=== PATIENT | female | born 1980 | race Caucasian/White ===

== ENCOUNTER 2020-03-27 17:31 | Inpatient (IN) | payer MEDICAID, SELFPAY ==
[2020-03-27 17:33] VITALS: BP 113/71; PULSE 113; RESP 18; TEMP 36.3; O2SAT 97; BMI 19.3
--- NOTE | 2020-03-27 17:35 | ED.RN ---
KINSEY SUBRAMANIAN- [phone]. RECENT FRIEND THAT SHE CAN CONTACT
--- NOTE | 2020-03-27 18:18 | ED.RN ---
PT SIGNED CONTRACT FOR RAMP PROGRAM. PT CHANGED INTO GOWN, GIVEN COKE, SNACK, YOGURT ECT. PT AWARE LABS NEED DRAWN
--- NOTE | 2020-03-27 18:19 | ED.DCSUM_ITS ---
History of Present Illness Chief Complaint: Substance Abuse Informant: Patient Narrative: Patient is a 39-year-old female with history of IV drug use and hypothyroid presenting for detox. Patient states she regularly uses crack cocaine and heroin IV. She last used earlier today. She mainly injects in her arms. She states she is about a gram a day. She states is been really trying to get clean all year but keeps relapsing. She has been at [facility] for detox in the past. Last time was about a month ago. She does admit to tobacco use. She denies any other drug use or any alcohol use. She notes that she has had increased redness and swelling around her track navarrete sites and is worried that she might have an infection. She was put on antibiotics by her primary care doctor last month but did not complete them. She does not know which antibiotics they were. She denies any fever or chills. She notes she has been off of her Synthroid as well. Patient states she is currently homeless. Past Medical History - Allergies and Home Meds Allergies/Adverse Reactions: Allergies No Known Allergies Allergy (Verified 03/27/20 17:35) Past Medical History: - - Hypothyroid Surgical History: noncontributory Lives: Homeless Smoking Status: Current every day smoker Alcohol: None Drugs: Cocaine, Heroin - Family History Maternal Family History: Reports: No pertinent history Paternal Family History: Reports: No pertinent history Review of Systems General: Denies: Chills, Fever, Malaise, Sweats Eyes: Denies: Visual changes - bilaterally, Diplopia ENT: Denies: Rhinorrhea, Sore throat Cardiovascular: Denies: Chest pain, Palpitations Respiratory: Denies: Dyspnea, Cough, Dyspnea on exertion Gastrointestinal: Denies: Abdominal pain, Nausea, Vomiting, Diarrhea, Melena, Hematochezia Genitourinary: Denies: Dysuria, Hematuria, Frequency Musculoskeletal: Denies: Back pain, Extremity Pain Skin: Reports: Wounds - Extremities from injecting drugs. Denies: Rash, Abscess Neurological: Denies: Headache, Weakness, Numbness Physical Exam Vital Signs/Narrative: Vital Signs Temp Pulse Resp BP Pulse Ox 03/27/20 17:33 97.4 F L 113 H 18 113/71 97 Inital Vital Signs reviewed: Yes General: Well nourished, Well developed, No Acute Distress Head: Normocephalic, Atraumatic Eyes: Perrl, EOMI ENT: Moist mucous membranes, No rhinorrhea Neck: Supple, Nontender Cardiovascular: Regular rate, Regular rhythm, No murmurs Respiratory: No distress, CTA bilaterally, Chest nontender Abdomen: Soft, Nontender, Nondistended, Normal bowel sounds Back: Nontender, Normal Inspection Extremities: Nontender, - - Mild erythema and edema of the right middle finger. No Kanaval signs Skin: Normal color, - - Multiple scattered track navarrete, multiple small wounds on all extremities consistent with skin picking and injecting. Some have scattered areas of erythema but no signs of abscess. No lymphangitic streaking is noted on the extremities. Neurological: Alert, Oriented x3, Cranial nerves II-XII grossly intact, Normal Strength, Normal Sensation Psychological: Normal affect, Normal Mood Diagnostic/Tx/Re-eval - Medical Decision Making Patient evaluated for request of detox from opioids and cocaine. Patient peers nontoxic in no acute distress. She does not appear clinically intoxicated at this time. She does have possible early cellulitic changes versus inflammatory changes from her IV drug use. She is given first dose of doxycycline emergency room. She does not have any obvious abscess or require any incision and drainage at this time. Patient is otherwise well-appearing. She stable for general medical floor at time of disposition. ED Disposition - Plan for ED Patient: Disposition: Acute Care [facility] Diagnosis: Opioid dependence, Polysubstance abuse, Cellulitis of right hand
--- NOTE | 2020-03-27 18:21 | PCM.HP.STD ---
History of Present Illness Date of Admission: 03/27/20 Chief Complaint: acute opioid withdrawal The patient is a 39 year old F with a past medical history of opiate dependence and crack cocaine abuse as well as hypothyroidism. She was admitted through the ED on 03/27/2020 for acute opiate withdrawal. Patient's last use was on day of admission. She admitted to some chills but denied fever, cough, chest pain, shortness of breath, palpitations abdominal cramping, dizziness, diarrhea vomiting. Review of signs otherwise negative. She says she has been through detox before but was unsuccessful. She says she has been going to detox every month this year up in [place] and says she was able to stay clean for a bit but subsequently relapsed because in the ED, vitals show temperature of 97.4 Fahrenheit with blood pressure of 113/71. Pulse rate was 113 and respiratory rate was 18. She was saturating 97% on room air. She has been admitted to be managed for acute opioid withdrawal. [] Past Medical History Allergies No Known Allergies Allergy (Verified 03/27/20 17:35) Surgical History: no surgical history Psychiatric History: No pertinent psych hx EXECUTIVE CREATIVE DIRECTOR History: No pertinent EXECUTIVE CREATIVE DIRECTOR history Lives: Homeless Smoking Status: Current every day smoker Tobacco Use: Cigarettes Alcohol: None Drugs: Cocaine, Heroin - *Family History Maternal History Items: - - hypothyroidism Paternal History Items: No pertinent history Review of Systems Constitutional: Denies: Chills, Fever, Malaise, Weight Change HEENT: Denies: Head Aches, Sinus Congestion, Sinus Drainage Cardiovascular: Denies: Chest Pain, Palpitations Respiratory: Denies: Cough, Shortness of Breath, Shortness of breath at rest, Shortness of breath upon exertion, Sputum production Gastrointestinal: Denies: Abdominal Pain, Nausea, Vomiting Genitourinary: Denies: Dysuria Musculoskeletal: Denies: Joint Pain, Joint Tenderness Skin: Reports: - - superficial irritations from IV drug use. Neurological: Denies: Numbness, Tingling, Focal weakness Psychiatric: Denies: Anxiety, Depression, Homicidal Ideations, Suicidal Ideations Hematologic/ Lymphatic: Denies: Easy Bruising, Easy Bleeding VTE Information - Inpt Only VTE Present on Admission: No VTE Pharm Prophylaxis ordered?: No Reason prophylaxis not ordered:: Treatment Not Indicated - Physical Exam Vitals/I&O's: Vital Signs Temp Pulse Resp BP Pulse Ox 97.4 F L 113 H 18 113/71 97 03/27/20 17:33 03/27/20 17:33 03/27/20 17:33 03/27/20 17:33 03/27/20 17:33 Oxygen Delivery Method Room Air Weight: 102 lb 1.184 oz Body Mass Index (BMI) 19.3 General: Alert, Oriented x3, Cooperative HEENT: Atraumatic, PERRLA, EOMI, Normocephalic Oral: Dry Mucosa Neck: Supple, No JVD, Negative Carotid Bruits Lungs: Clear to auscultation, Normal air movement Cardiovascular: Regular rate, Normal S1, Normal S2, No murmurs Abdomen: Bowel Sounds Present, Soft, Non Tender Extremities: No clubbing, No cyanosis, No edema, Capillary Refill Less than 3 Seconds Skin: No rashes, No breakdown, - - superficial ulcerations with erythema and healing scabs all over UEs and lower extremities, as well as her face. Musculoskeletal: No Tenderness to Palpation of Joints or Extremities Lymphatic: No Cervical, Supraclavicular, or Inguinal Adenopathy Neurological: Cranial nerves II-XII grossly intact, Neuro grossly intact, Motor Exam 5/5 strength throughout Psych/Mental Status: Normal Affect, Appropriate, Alert and oriented to time, place, person, mood and affect Assessment/Plan 39-year-old female admitted for acute opioid withdrawal. #Acute opioid withdrawal Admit to [facility]. CBC and CMP as well as urine tox pending. Started on opioid withdrawal protocol with buprenorphine. Patient told me that she preferred tramadol withdrawal protocol but I explained to her that our recommended protocol was with buprenorphine. Monitor CINA score. #History of crack cocaine abuse: Counseled to quit. #cellulitis fo the UEs and LEs: has ulcerations with mild erythema over her upper extremities and lower extremities. Will start on p.o. doxycycline. #History of hepatitis C: Treatment na?ve. Counseled she needs to stay clean for about 6 months qualify for treatment. # hypothyroidism: Patient says she has a history of hypothyroidism and is on Synthroid at home. This is not on her med rec for her. TSH is pending. #DVT prophylaxis: Low risk. Encouraged to ambulate. Disposition: Patient is currently homeless and says she has a bed in a rehab facility in [place] after the acute detox process. She does not remember the name of the treatment facility. When I suggested it could be [facility], she said was possibly at that facility but she could not remember. Case management to help facilitate eventual discharge. Inpatient E&M: [id number] Init Hosp L3
--- NOTE | 2020-03-27 18:26 | NURSING ---
DR HEBERT CARDENAS
--- NOTE | 2020-03-27 18:29 | CM.ED ---
SOCIAL WORK Reason for Consult: Substance Abuse Patient presents to [facility] ER wanting detox from heroin and cocaine. Patient states last use was earlier today. Patient states resides in [facility]. Discussed [facility] program and informed quarry worker from [facility] will complete assessment with patient during inpatient stay. Patient verbalized understanding. Patient has signed RAMP agreement with nursing and denies any questions or concerns. Plan: Admit to CURLY Leonardo, PIN INSERTER REGULATOR, SOFTWARE REQUIREMENTS ENGINEER
[2020-03-27 18:30] VITALS: BP 113/71; PULSE 113; RESP 18; TEMP 36.3
--- NOTE | 2020-03-27 18:32 | NURSING ---
MED SURG DR AMBROSIO ACUTE OPIOID WITHDRAWAL
[2020-03-27 18:38] VITALS: BMI 19.3
[2020-03-27] MEDS: Doxycycline 100 MG CAPSULE PO ×2 (18:47→22:10)
--- NOTE | 2020-03-27 18:55 | CM.ED ---
SOCIAL WORK Call to [facility] Treatment Navigator-Michelle to update on patient's admission to [facility]. Per Michelle loft worker head will be in tomorrow to complete assessment. Cari Leonardo, SUPERVISOR TOY ASSEMBLY, SUPERVISOR DOG LICENSE OFFICER
[2020-03-27 19:04] VITALS: BMI 19.3
[2020-03-27 19:04] LABS: Absolute Lymphocyte Count 1.83 X10^3/uL (0.83-4.51); Absolute Neutrophil Count 9.7 X10^3/uL (2.0-7.7); Basophil# 0.05 X10^3/uL; Basophil% 0.4 % (0-1); Eosinophil# 0.34 X10^3/uL; Eosinophils% 2.7 % (0-5); Hematocrit 37.4 % (37-47); Lymphocyte # 1.83 X10^3/ul (4.0); Lymphocyte % 14.8 % (19-41); Mean Corp Hgb Conc 32.1 g/dL (32-36); Mean Corpuscular Hgb 28.5 pg (27.0-32.0); Mean Corpuscular Volume 88.8 fL (81-99); Mean Platelet Vol. 9.3 fl (6.2-12.0); Monocyte# 0.47 X10^3/uL; Monocyte% 3.8 % (0-10); NRBC Flagged by Analyzer 0 % (0-5); Neutrophil # 9.65 X10^3/uL (2.7-7.7); Neutrophil % 77.8 % (47-70); Platelet Count 377 K/mm3 (150-450); RBC Distribution Width CV 13.8 % (11.6-14.6); RBC Distribution Width SD 44.8 fl (35.1-43.9); Red Blood Count 4.21 M/mm3 (4.2-5.4); White Blood Count 12.4 K/mm3 (4.4-11.0)
[2020-03-27 19:06] LABS: Internal QC Validated? YES +Cl - CLEAR BKGD; Pregnancy, Urine Negative Negative
[2020-03-27 19:16] LABS: Amphetamine Urine VISTA POSITIVE (<1000 ng/mL); Barbiturate Urine VISTA NEGATIVE (< 200 ng/mL); Benzodiazepine Urine VISTA NEGATIVE (< 200 ng/mL); Cocaine Urine VISTA POSITIVE (< 300 ng/mL); Ecstacy Urine VISTA NEGATIVE (< 500 ng/mL); Methadone Urine VISTA NEGATIVE (< 300 ng/mL); PCP Urine VISTA NEGATIVE (< 25 ng/mL); THC Urine VISTA NEGATIVE (< 50 ng/mL); Vista UDS pH Range 6
[2020-03-27 19:19] VITALS: BP 107/66; PULSE 102; RESP 16; TEMP 36.8; O2SAT 98
[2020-03-27 19:27] LABS: ALB/GLOB Ratio 0.6 RATIO (0.9-2.4); AST(SGOT) 15 U/L (15-37); Alanine Aminotransfer ALT/SGPT 19 U/L (13-56); Albumin, Serum 3.2 g/dL (3.2-5.0); Alkaline Phosphatase 126 U/L (45-117); Anion Gap 4 (5-15); BUN 8 mg/dL (7-18); BUN/Creat Ratio 10.4 RATIO (10-20); Calcium,Total 8.9 mg/dL (8.5-10.1); Chloride 101 mmol/L (98-107); Creatinine, Serum 0.77 mg/dL (0.55-1.02); EST Glomerular Filtration Rate 89 mL/min (>60); Est Glom Filt Rate - Afr Amer 107 mL/min (>60); Estimated Creatinine Clearance 70.99 ml/min; Globulin 5.6 g/dL (2.2-4.2); Glucose 119 mg/dL (74-106); Potassium 3.4 mmol/L (3.5-5.1); Protein, Total 8.8 g/dL (6.4-8.2); Sodium Level 136 mmol/L (136-145); Thyroid Stim Hormone (TSH) 0.62 uIU/mL (0.358-3.74)
[2020-03-27] MEDS: hydrOXYzine PAM 25 MG Capsule 50 MG PO (23:06)
[2020-03-27] MEDS: Buprenorphine HCl 2 MG TAB.SUBL SL (23:06)
[2020-03-28 01:45] VITALS: BP 111/66; PULSE 100; RESP 18; TEMP 37.8; O2SAT 98
[2020-03-28 05:37] VITALS: BP 98/66; PULSE 98; RESP 16; TEMP 37.2; O2SAT 98
[2020-03-28] MEDS: Buprenorphine HCl 2 MG TAB.SUBL SL ×3 (05:40→22:30)
[2020-03-28 05:50] LABS: Absolute Lymphocyte Count 2.99 X10^3/uL (0.83-4.51); Absolute Neutrophil Count 8.5 X10^3/uL (2.0-7.7); Basophil# 0.06 X10^3/uL; Basophil% 0.5 % (0-1); Eosinophil# 0.38 X10^3/uL; Eosinophils% 2.9 % (0-5); Hematocrit 35.9 % (37-47); Hemoglobin 11.7 g/dL (12.0-15.0); Lymphocyte # 2.99 X10^3/ul (4.0); Lymphocyte % 22.9 % (19-41); Mean Corp Hgb Conc 32.6 g/dL (32-36); Mean Corpuscular Hgb 28.8 pg (27.0-32.0); Mean Corpuscular Volume 88.4 fL (81-99); Mean Platelet Vol. 9.4 fl (6.2-12.0); Monocyte# 1.04 X10^3/uL; NRBC Flagged by Analyzer 0 % (0-5); Platelet Count 358 K/mm3 (150-450); RBC Distribution Width CV 13.6 % (11.6-14.6); RBC Distribution Width SD 44.4 fl (35.1-43.9); Red Blood Count 4.06 M/mm3 (4.2-5.4); White Blood Count 13.1 K/mm3 (4.4-11.0)
[2020-03-28 06:35] LABS: ALB/GLOB Ratio 0.6 RATIO (0.9-2.4); AST(SGOT) 17 U/L (15-37); Alanine Aminotransfer ALT/SGPT 19 U/L (13-56); Albumin, Serum 2.9 g/dL (3.2-5.0); Alkaline Phosphatase 123 U/L (45-117); Anion Gap 6 (5-15); BUN 9 mg/dL (7-18); BUN/Creat Ratio 14.2 RATIO (10-20); Calcium,Total 8.5 mg/dL (8.5-10.1); Chloride 103 mmol/L (98-107); Creatinine, Serum 0.63 mg/dL (0.55-1.02); EST Glomerular Filtration Rate 111 mL/min (>60); Est Glom Filt Rate - Afr Amer 134 mL/min (>60); Estimated Creatinine Clearance 86.76 ml/min; Globulin 5.2 g/dL (2.2-4.2); Glucose 116 mg/dL (74-106); Potassium 3.4 mmol/L (3.5-5.1); Protein, Total 8.1 g/dL (6.4-8.2); Sodium Level 134 mmol/L (136-145)
[2020-03-28 08:00] VITALS: BP 101/72; PULSE 98; RESP 16; TEMP 36.6; O2SAT 98
--- NOTE | 2020-03-28 09:50 | ADDICTION ---
This story writer attempted to meet with patient in her room. Patient declined assessment and d/c planning today but noted that she will engage tomorrow.
--- NOTE | 2020-03-28 10:05 | PN_ITS ---
Patient Problems: Active and Suspected Problems Opioid dependence (Acute) Polysubstance abuse (Acute) Cellulitis of right hand (Acute) Subjective: Patient seen and examined. Very somnolent during exam. Reports chills, clamminess and nausea. Denies other withdrawal symptoms. - Physical Exam Vitals/I&O's: Vital Signs Temp Pulse Resp BP Pulse Ox 98.9 F 98 16 98/66 98 03/28/20 05:37 03/28/20 05:37 03/28/20 05:37 03/28/20 05:37 03/28/20 05:37 Oxygen Delivery Method Room Air Weight: 102 lb 1.184 oz Body Mass Index (BMI) 19.3 Intake and Output for Last 24 Hours 03/26/20 03/27/20 03/28/20 23:59 23:59 23:59 Intake Total 720 / 720 Balance 720 / 720 General: - - Drowsy HEENT: Atraumatic, PERRLA, EOMI, Normocephalic Oral: Dry Mucosa Neck: Supple, No JVD, Negative Carotid Bruits Lungs: Clear to auscultation, Normal air movement Cardiovascular: Regular rate, No murmurs Abdomen: Bowel Sounds Present, Soft, Non Tender, Non-Distended Extremities: No clubbing, No cyanosis, No edema, Capillary Refill Less than 3 Seconds Skin: No rashes, No breakdown, - - Multiple scattered abrasions/scabs to face and upper/lower extremities. Musculoskeletal: No Tenderness to Palpation of Joints or Extremities, Cachexia Neurological: Cranial nerves II-XII grossly intact, Neuro grossly intact Psych/Mental Status: Flat Affect Laboratory Results 03/27/20 18:50: WBC 12.4 H, RBC 4.21, Hgb 12.0, Hct 37.4, MCV 88.8, MCH 28.5, MCHC 32.1, RDW Std Deviation 44.8 H, RDW Coeff of Raj 13.8, Plt Count 377, MPV 9.3, Immature Gran % (Auto) 0.500, Neut % (Auto) 77.8 H, Lymph % (Auto) 14.8 L, Carver % (Auto) 3.8, Eos % (Auto) 2.7, Baso % (Auto) 0.4, Absolute Neuts (auto) 9.7 H, Absolute Lymphs (auto) 1.83, Nucleated RBC % 0 03/27/20 18:50: Sodium 136, Potassium 3.4 L, Chloride 101, Carbon Dioxide 31.0, Anion Gap 4 L, BUN 8, Creatinine 0.77, Estim Creat Clear Calc 70.99, Est GFR (MDRD) Af Amer 107, Est GFR (MDRD) Non-Af 89, BUN/Creatinine Ratio 10.4, Glucose 119 H, Calcium 8.9, Total Bilirubin 0.40, AST 15, ALT 19, Alkaline Phosphatase 126 H, Total Protein 8.8 H, Albumin 3.2, Globulin 5.6 H, Albumin/Globulin Ratio 0.6 L, TSH 0.62 03/27/20 18:50: Ethyl Alcohol 8.0 03/27/20 18:55: Urine Opiates Screen POSITIVE H, Urine Methadone Screen NEGATIVE, Ur Barbiturates Screen NEGATIVE, Ur Phencyclidine Scrn NEGATIVE, Ur Amphetamines Screen POSITIVE H, U Methamphetamin-MDMA NEGATIVE, U Rodo odiazepines Scrn NEGATIVE, Urine Cocaine Screen POSITIVE H, U Cannabinoids Screen NEGATIVE, Ur Drug Screen Comment 03/27/20 18:55: Urine Test Negative 03/28/20 05:30: WBC 13.1 H, RBC 4.06 L, Hgb 11.7 L, Hct 35.9 L, MCV 88.4, MCH 28.8, MCHC 32.6, RDW Std Deviation 44.4 H, RDW Coeff of Raj 13.6, Plt Count 358, MPV 9.4, Immature Gran % (Auto) 0.700, Neut % (Auto) 65.0, Lymph % (Auto) 22.9, Carver % (Auto) 8.0, Eos % (Auto) 2.9, Baso % (Auto) 0.5, Absolute Neuts (auto) 8.5 H, Absolute Lymphs (auto) 2.99, Nucleated RBC % 0 03/28/20 05:30: Sodium 134 L, Potassium 3.4 L, Chloride 103, Carbon Dioxide 25.0, Anion Gap 6, BUN 9, Creatinine 0.63, Estim Creat Clear Calc 86.76, Est GFR (MDRD) Af Amer 134, Est GFR (MDRD) Non-Af 111, BUN/Creatinine Ratio 14.2, Glucose 116 H, Calcium 8.5, Total Bilirubin 0.30, AST 17, ALT 19, Alkaline Phosphatase 123 H, Total Protein 8.1, Albumin 2.9 L, Globulin 5.2 H, Albumin/Globulin Ratio 0.6 L Current Medications Acetaminophen (Tylenol) 650 mg PO Q6H PRN PRN PRN Reason: Pain Score 1-10/Temp > 100.7 F Buprenorphine HCl (Buprenorphine Hcl) 4 mg SL Q8H [facility]; Taper Stop: 03/30/20 22:29 Last Admin: 03/28/20 05:40 Dose: 4 mg Documented by: Clonidine (Catapres) 0.1 mg PO Q8H PRN PRN PRN Reason: RESTLESSNESS Dicyclomine HCl (Bentyl) 20 mg PO Q6H PRN PRN PRN Reason: Abdominal Discomfort Doxycycline Monohydrate (Doxycycline) 100 mg PO BID [facility] Last Admin: 03/27/20 22:10 Dose: 100 mg Documented by: Gabapentin (Neurontin) 300 mg PO Q8H PRN PRN PRN Reason: moderate to severe anxiety Hydroxyzine Pamoate (Vistaril Pamoate Capsule) 50 mg PO Q6H PRN PRN PRN Reason: mild anxiety Last Admin: 03/27/20 23:06 Dose: 50 mg Documented by: Loperamide HCl (Imodium) 2 mg PO Q4H PRN PRN PRN Reason: LOOSE STOOLS Methocarbamol (Methocarbamol) 1,500 mg PO Q6H PRN PRN PRN Reason: MUSCLE SPASM Nutritional Formula (Lactose Free) (Ensure Enlive) 120 ml PO 4X/DAY [facility] Ondansetron HCl (Zofran) 8 mg PO Q8H PRN PRN PRN Reason: NAUSEA Ondansetron HCl (Zofran) 4 mg IV Q8H PRN PRN PRN Reason: NAUSEA/VOMITING Sodium Chloride () 10 - 40 ml IV UD PRN PRN Reason: SALINE FLUSH Trazodone HCl (Desyrel) 100 mg PO QHS PRN PRN PRN Reason: INSOMNIA Medical Necessity - Tobacco Use Smoking Status: Current every day smoker Tobacco Use: Cigarettes Assessment/Plan All Active Problems Opioid dependence (Acute) Polysubstance abuse (Acute) Cellulitis of right hand (Acute) 1. Acute opioid withdrawal-buprenorphine taper. PRN regimen for somatic complaints. [facility] consult. 2. Polysubstance abuse-tox screen positive for opiates, amphetamines and cocaine. Patient reports serial relapses and has been through detox numerous times in [place]. [facility]. 3. Cellulitis to upper and lower extremities- secondary to picking behavior with scattered abrasions to face and extremities. Continue oral doxycycline. 4. Hypothyroidism-continue Synthroid regimen. 5. History of hepatitis C-outpatient follow-up following 6 months clean. DVT prophylaxis-Low risk, not indicated This patient was seen by CYNTHIA Torres under the supervision of Dr. Nunez.
--- NOTE | 2020-03-28 10:24 | CASEMGMT ---
Social Work Note SW updated that pt is homeless. SW in to speak with pt. SW introduced self and role at [facility]. Pt is sleeping when this worker entered the room, barely woke up. SW provided pt with homeless resources. Elizabeth Smith KILN BURNER HELPER, HOSPITAL TECHNICIAN
[2020-03-28] MEDS: Doxycycline 100 MG CAPSULE PO ×2 (11:34→22:30)
[2020-03-28] MEDS: Methocarbamol 750 MG Tablet 1500 MG PO (11:50)
[2020-03-28] MEDS: Gabapentin 300 MG Capsule PO ×2 (11:50→22:30)
[2020-03-28 15:00] VITALS: BP 100/66; PULSE 101; RESP 16; TEMP 37.2; O2SAT 98
[2020-03-28 22:25] VITALS: BP 113/78; PULSE 72; RESP 14; TEMP 36.3; O2SAT 100
[2020-03-28] MEDS: traZODone 100 MG Tablet PO (22:30)
[2020-03-29 05:35] VITALS: BP 91/56; PULSE 102; RESP 16; TEMP 36.7; O2SAT 97
[2020-03-29] MEDS: Buprenorphine HCl 2 MG TAB.SUBL SL (05:39)
[2020-03-29] MEDS: hydrOXYzine PAM 25 MG Capsule 50 MG PO (05:39)
[2020-03-29 06:02] LABS: Hematocrit 38.6 % (37-47); Hemoglobin 12.4 g/dL (12.0-15.0); Mean Corp Hgb Conc 32.1 g/dL (32-36); Mean Corpuscular Hgb 28.6 pg (27.0-32.0); Mean Corpuscular Volume 89.1 fL (81-99); Mean Platelet Vol. 9.3 fl (6.2-12.0); Platelet Count 407 K/mm3 (150-450); RBC Distribution Width CV 13.9 % (11.6-14.6); RBC Distribution Width SD 45.8 fl (35.1-43.9); Red Blood Count 4.33 M/mm3 (4.2-5.4); White Blood Count 7.9 K/mm3 (4.4-11.0)
[2020-03-29 06:26] LABS: Anion Gap 4 (5-15); BUN 13 mg/dL (7-18); BUN/Creat Ratio 22.3 RATIO (10-20); Calcium,Total 9.4 mg/dL (8.5-10.1); Chloride 104 mmol/L (98-107); Creatinine, Serum 0.58 mg/dL (0.55-1.02); EST Glomerular Filtration Rate 121 mL/min (>60); Est Glom Filt Rate - Afr Amer 147 mL/min (>60); Estimated Creatinine Clearance 94.24 ml/min; Glucose 118 mg/dL (74-106); Potassium 3.9 mmol/L (3.5-5.1); Sodium Level 136 mmol/L (136-145)
[2020-03-29] MEDS: Doxycycline 100 MG CAPSULE PO (09:47)
[2020-03-29 10:00] VITALS: PULSE 106
--- NOTE | 2020-03-29 10:22 | ADDICTION ---
Patient refused to speak with this marine underwriter on 03/28/2020 and 03/29/2020. She stated that she has a discharge plan in place noting that some lady is having someone else pick me up. She stated that she does not want to work with this marine underwriter for assessment or discharge planning. This marine underwriter will inform ROD and TAIWO SYKES.
--- NOTE | 2020-03-29 11:23 | DCINST_ITS ---
- Discharge Diagnoses Current Active Problems: Current Active and Chronic Problems Opioid dependence (Acute) Polysubstance abuse (Acute) Cellulitis of right hand (Acute) You will use the following diet at home:: No restrictions Discharge Activity: Return to Normal Activity Call your doctor if you observe: Shortness of breath, Dizziness, Fainting spells, Chest pain Allergies/Adverse Reactions: Allergies No Known Allergies Allergy (Verified 03/27/20 17:35) Medications to take at Discharge Gabapentin 800 mg PO BID 03/27/20 Levothyroxine [Synthroid] 25 mcg PO DAILY 03/27/20 Doxycycline 100 mg PO BID 5 Days #10 cap 03/29/20 The following prescriptions were given: Doxycycline 100 mg PO BID 5 Days #10 cap Prescription Printed Primary Care Physician: Mainor Schuler MD [Primary Care Provider] - Please follow up with your Primary Care Physician in: 1 Week Test Results: Test results from this visit will be discussed in further detail at your follow- up appointment, if applicable. Please Follow Up With: EIGHTY,ONE When: Follow up if agreeable Proposed Discharge Date: 03/29/20
[2020-03-29 11:24] VITALS: BP 96/55; PULSE 106; RESP 18; TEMP 36.6; O2SAT 98
--- NOTE | 2020-03-29 11:28 | PCM.DC.SUM ---
Discharge Date and Diagnosis Date of Admission: 03/27/20 Date of Discharge: 03/29/20 - Primary Discharge Diagnosis Acute Problems: Active Problems 1. Acute opioid withdrawal 2. Polysubstance abuse 3. Cellulitis to upper and lower extremities 4. Hypothyroidism 5. History of hepatitis C Hospital Course and Treatment formerly [facility] Operations: None Procedures: None Summary of Care Provided: The patient is a 39 year old F admitted 03/27/2020 due to opioid withdrawal. 1. Acute opioid withdrawal-buprenorphine taper. PRN regimen for somatic complaints. Patient refused to talk with [facility] union representative on 2 separate occasions. No evidence of withdrawal symptoms. Discharged in stable condition. Patient may contact [facility] if she becomes agreeable to their services. 2. Polysubstance abuse-tox screen positive for opiates, amphetamines and cocaine. Patient reports serial relapses and has been through detox numerous times in [place]. [facility] consulted. Uncooperative as noted above. 3. Cellulitis to upper and lower extremities- secondary to picking behavior with scattered abrasions to face and extremities. Continue oral doxycycline to complete course. 4. Hypothyroidism-continue Synthroid regimen. 5. History of hepatitis C-outpatient follow-up following 6 months clean. General: - - Drowsy HEENT: Atraumatic, PERRLA, EOMI, Normocephalic Oral: Dry Mucosa Neck: Supple, No JVD, Negative Carotid Bruits Lungs: Clear to auscultation, Normal air movement Cardiovascular: Regular rate, No murmurs Abdomen: Bowel Sounds Present, Soft, Non Tender, Non-Distended Extremities: No clubbing, No cyanosis, No edema, Capillary Refill Less than 3 Seconds Skin: No rashes, No breakdown, - - Multiple scattered abrasions/scabs to face and upper/lower extremities. Musculoskeletal: No Tenderness to Palpation of Joints or Extremities, Cachexia Neurological: Cranial nerves II-XII grossly intact, Neuro grossly intact Psych/Mental Status: Flat Affect Patient seen and examined prior to discharge. Physical assessment as noted above. Patient is stable for discharge with follow up recommendations as noted above. This patient was seen by CYNTHIA Torres under the supervision of Dr. Nunez. - Physical Exam Vitals/I&O's: Vital Signs Temp Pulse Resp BP Pulse Ox 98.1 F 102 H 16 91/56 L 97 03/29/20 05:35 03/29/20 05:35 03/29/20 05:35 03/29/20 05:35 03/29/20 05:35 Oxygen Delivery Method Room Air Weight: 102 lb 1.184 oz Body Mass Index (BMI) 19.3 Intake and Output for Last 24 Hours 03/27/20 03/28/20 03/29/20 23:59 23:59 23:59 Intake Total 720 / 1120 700 / 700 Balance 720 / 1120 700 / 700 Laboratory Results 03/29/20 05:25: WBC 7.9, RBC 4.33, Hgb 12.4, Hct 38.6, MCV 89.1, MCH 28.6, MCHC 32.1, RDW Std Deviation 45.8 H, RDW Coeff of Raj 13.9, Plt Count 407, MPV 9.3 03/29/20 05:25: Sodium 136, Potassium 3.9, Chloride 104, Carbon Dioxide 28.0, Anion Gap 4 L, BUN 13, Creatinine 0.58, Estim Creat Clear Calc 94.24, Est GFR (MDRD) Af Amer 147, Est GFR (MDRD) Non-Af 121, BUN/Creatinine Ratio 22.3 H, Glucose 118 H, Calcium 9.4 Current Medications Acetaminophen (Tylenol) 650 mg PO Q6H PRN PRN PRN Reason: Pain Score 1-10/Temp > 100.7 F Buprenorphine HCl (Buprenorphine Hcl) 2 mg SL Q8H [facility]; Taper Stop: 03/30/20 22:29 Last Admin: 03/29/20 05:39 Dose: 2 mg Documented by: Clonidine (Catapres) 0.1 mg PO Q8H PRN PRN PRN Reason: RESTLESSNESS Dicyclomine HCl (Bentyl) 20 mg PO Q6H PRN PRN PRN Reason: Abdominal Discomfort Doxycycline Monohydrate (Doxycycline) 100 mg PO BID [facility] Last Admin: 03/29/20 09:47 Dose: 100 mg Documented by: Gabapentin (Neurontin) 300 mg PO Q8H PRN PRN PRN Reason: moderate to severe anxiety Last Admin: 03/28/20 22:30 Dose: 300 mg Documented by: Hydroxyzine Pamoate (Vistaril Pamoate Capsule) 50 mg PO Q6H PRN PRN PRN Reason: mild anxiety Last Admin: 03/29/20 05:39 Dose: 50 mg Documented by: Loperamide HCl (Imodium) 2 mg PO Q4H PRN PRN PRN Reason: LOOSE STOOLS Methocarbamol (Methocarbamol) 1,500 mg PO Q6H PRN PRN PRN Reason: MUSCLE SPASM Last Admin: 03/28/20 11:50 Dose: 1,500 mg Documented by: Nutritional Formula (Lactose Free) (Ensure Enlive) 120 ml PO 4X/DAY [facility] Last Admin: 03/29/20 09:47 Dose: 120 ml Documented by: Ondansetron HCl (Zofran) 8 mg PO Q8H PRN PRN PRN Reason: NAUSEA Ondansetron HCl (Zofran) 4 mg IV Q8H PRN PRN PRN Reason: NAUSEA/VOMITING Sodium Chloride () 10 - 40 ml IV UD PRN PRN Reason: SALINE FLUSH Trazodone HCl (Desyrel) 100 mg PO QHS PRN PRN PRN Reason: INSOMNIA Last Admin: 03/28/20 22:30 Dose: 100 mg Documented by: Discharge Diet: No Restrictions Discharge Activity: Return to Normal Activity Call your doctor if you observe: Shortness of breath, Dizziness, Fainting spells, Chest pain Home Medications: Medications to take at Discharge Gabapentin 800 mg PO BID 03/27/20 Levothyroxine [Synthroid] 25 mcg PO DAILY 03/27/20 Doxycycline 100 mg PO BID 5 Days #10 cap 03/29/20 Following Prescriptions Were Given to Patient: Doxycycline 100 mg PO BID 5 Days #10 cap Prescription Printed Primary Care Physician: Mainor Schuler MD [Primary Care Provider] - Please follow up with your Primary Care Physician in: 1 Week Please Follow Up With: EIGHTY,ONE When: Follow up if agreeable Disposition: Home Minutes spent on discharge:: 35 Patient Condition:: Stable Medical Necessity - Tobacco Use Smoking Status: Current every day smoker Tobacco Use: Cigarettes Meaningful Use Info Meaningful Use Diagnoses (Choose all that apply): None applicable
--- NOTE | 2020-03-29 11:56 | PHA.DC.MR ---
Pharmacy Service has performed discharge medication reconciliation for this patient. The patient's discharge medication list was reviewed for discrepancies and discrepancies were resolved. Home Medications Gabapentin 800 mg PO BID 03/27/20 Levothyroxine [Synthroid] 25 mcg PO DAILY 03/27/20 Doxycycline 100 mg PO BID 5 Days #10 cap 03/29/20
== END 2020-03-29 12:45 | disposition home or self-care (01) | DRG 773 ==
LOC: ED 17:59 → MS3 18:48
PROVIDERS: Nurse Practitioner Family; Admitting Provider Student in an Organized Health Care Education/Training Program; Emergency Provider Emergency Medicine; PCP Family Medicine; Visit Provider Family Medicine
DX: F11.23 Opioid dependence with withdrawal (principal); F14.10 Cocaine abuse, uncomplicated; F15.10 Other stimulant abuse, uncomplicated; L03.116 Cellulitis of left lower limb; L03.115 Cellulitis of right lower limb; L03.114 Cellulitis of left upper limb; L03.113 Cellulitis of right upper limb; S80.812A Abrasion, left lower leg, initial encounter; S80.811A Abrasion, right lower leg, initial encounter; S40.812A Abrasion of left upper arm, initial encounter; S40.811A Abrasion of right upper arm, initial encounter; S00.81XA Abrasion of other part of head, initial encounter; X83.8XXA Intentional self-harm by other specified means, initial encounter; Y93.9 Activity, unspecified; Y92.9 Unspecified place or not applicable; E03.9 Hypothyroidism, unspecified; B18.2 Chronic viral hepatitis C; Z59.0 Homelessness; F17.210 Nicotine dependence, cigarettes, uncomplicated; Z79.899 Other long term (current) drug therapy
CPT/HCPCS: 36415; 80048; 80053; 80307; 80320; 81025; 84443; 85025; 85027; 99281; 99283; 99406; G0480